=== PATIENT | male | born 1935 | race Caucasian/White ===

== ENCOUNTER 2024-04-14 09:02 | Day surgery (SDC) | payer MEDICARE ==
[~2024-04-14 09:02] MED LIST: AREDS 2 PO; ASPIRIN PO; CA CIT/VIT1 PO; COQ10100 MG PO; FISH OIL 1000 M1 CAP PO; GLUCOSAMINE SUL1 TAB PO; LINZESS72 MCG PO; MAGNESIUM W/ZINC PO; METAMUCIL; MULTIVITAMI9 PO; PROBIOTIC; SAW PALMETTO450 MG PO; VITAMIN B12 PO
[2024-04-14] MEDS ORDERED: LACTATED RINGER'S 1,000 ML IV ONE (09:48)
[2024-04-14] MEDS ORDERED: FAMOTIDINE 10MG/ML 2ML SDV IV ONE (09:48)
[2024-04-14 11:22] VITALS: BP 130/84
[2024-04-14] MEDS ORDERED: LIDOCAINE HCL 2% 2ML SDV IV ONE (15:42)
[2024-04-14] MEDS ORDERED: PROPOFOL 200 MG/20 ML VIAL IV ONE (15:42)
[2024-04-14] MEDS ORDERED: GLYCOPYRROLATE 0.2 MG/ML IV ONE (15:42)
== END 2024-04-14 11:38 | disposition home or self-care (01) ==
LOC: ORM 09:02
PROVIDERS: ATTEND Surgery
PROC: 0DJD8ZZ Inspection of Lower Intestinal Tract, Via Natural or Artificial Opening Endoscopic (ICD-10-PCS; principal; 2024-04-14)
DX: K57.30 Diverticulosis of large intestine without perforation or abscess without bleeding (principal); K64.8 Other hemorrhoids; I05.1 Rheumatic mitral insufficiency